=== PATIENT | female | born 1970 | race Caucasian/White ===

== ENCOUNTER 2018-03-31 12:36 | Emergency (ER) | payer MEDICAID, OTHER ==
[~2018-03-31] VITALS: Ht 160 cm; Wt 72.7 kg
[~2018-03-31 12:36] MED LIST: NOCURR
[2018-03-31] MEDS ORDERED: IBUP-2071 PO (12:43)
[2018-03-31] MEDS ORDERED: KETOROLAC TROMETHAMINE 30 MG/ML VIAL IM ONE (14:00)
[2018-03-31] MEDS ORDERED: LIDOCAINE 5% TRANSDERMAL PATCH TD ONE (14:00)
[2018-03-31] MEDS ORDERED: METHOCARBAMOL 500 MG TABLET PO ONE (14:00)
[2018-03-31 15:15] VITALS: BP 120/73
== END 2018-03-31 15:25 | disposition home or self-care (01) ==
LOC: EMS 12:37
DX: G89.29 Other chronic pain (principal); M54.5 Low back pain; R03.0 Elevated blood-pressure reading, without diagnosis of hypertension; F17.210 Nicotine dependence, cigarettes, uncomplicated
CPT/HCPCS: 96372; 99283; J1885

== ENCOUNTER 2018-12-09 12:46 | Emergency (ER) | payer OTHER ==
[~2018-12-09] VITALS: Ht 160 cm; Wt 71.8 kg
[~2018-12-09 12:46] MED LIST changes: +IBUP-2071 PO; -NOCURR
[2018-12-09] MEDS ORDERED: POVIDONE-IODINE 10% 15 ML SOLUTION UD TP ONE (14:45)
[2018-12-09] MEDS ORDERED: PERTUSS(ACELL),DIPH,TET VAC/PF 0.5 ML VIAL IM ONE (14:45)
[2018-12-09] MEDS ORDERED: BACITRACIN 0.9 GM PACKET OINTMENT TP ONE (14:45)
[2018-12-09] MEDS ORDERED: IBUPROFEN 800 MG TABLET PO ONE (14:45)
[2018-12-09 16:15] VITALS: BP 137/84
== END 2018-12-09 16:21 | disposition home or self-care (01) ==
LOC: EMS 12:48
DX: S61.411A Laceration without foreign body of right hand, initial encounter (principal); F17.210 Nicotine dependence, cigarettes, uncomplicated; W25.XXXA Contact with sharp glass, initial encounter; Y93.89 Activity, other specified; Y92.89 Other specified places as the place of occurrence of the external cause; Y99.8 Other external cause status
CPT/HCPCS: 90471; 90715

== ENCOUNTER 2022-06-12 00:30 | Emergency (ER) | payer OTHER ==
[~2022-06-12] VITALS: Ht 160 cm; Wt 79.5 kg
[2022-06-12] MEDS ORDERED: KETOROLAC TROMETHAMINE 30 MG/ML VIAL IVP ONE (01:00)
[2022-06-12] MEDS ORDERED: METOCLOPRAMIDE HCL 5 MG/ML 2 ML VIAL IVP ONE (01:00)
[2022-06-12] MEDS ORDERED: SODIUM CHLORIDE 0.9% 1,000 ML IV ONE (01:00)
[2022-06-12] MEDS ORDERED: DiphenhydrAMINE HCL 50 MG/ML VIAL IVP ONE (01:00)
[2022-06-12 02:24] VITALS: BP 148/93
== END 2022-06-12 02:42 | disposition home or self-care (01) ==
LOC: EMS 00:31
DX: G43.909 Migraine, unspecified, not intractable, without status migrainosus (principal); F17.210 Nicotine dependence, cigarettes, uncomplicated
CPT/HCPCS: 99284; 96374; 96375; 96361; J1200; J1885; J2765; J7030

== ENCOUNTER 2022-11-20 18:01 | Emergency (ER) | payer OTHER ==
[~2022-11-20] VITALS: Ht 160 cm; Wt 78.6 kg
[2022-11-20] MEDS ORDERED: SODIUM CHLORIDE 0.9% 1,000 ML IV ONE (19:15)
[2022-11-20] MEDS ORDERED: DiphenhydrAMINE HCL 50 MG/ML VIAL IVP ONE (19:15)
[2022-11-20] MEDS ORDERED: METOCLOPRAMIDE HCL 5 MG/ML 2 ML VIAL IVP ONE (19:15)
[2022-11-20 20:30] VITALS: BP 123/68
== END 2022-11-20 21:58 | disposition home or self-care (01) ==
LOC: EMS 18:02
DX: G43.909 Migraine, unspecified, not intractable, without status migrainosus (principal); F17.210 Nicotine dependence, cigarettes, uncomplicated
CPT/HCPCS: 99284; 96374; 96361; 96375; J1200; J2765; J7030